=== PATIENT | female | born 1975 | race Caucasian/White ===

== ENCOUNTER 2021-05-21 01:07 | Emergency (ER) | payer SELFPAY ==
[~2021-05-21] VITALS: Ht 162.6 cm; Wt 68.8 kg
[~2021-05-21 01:07] MED LIST: HYDR-209
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
[2021-05-21 02:06] LABS: BASO # 0.1 x10^3/uL (0.0-0.2); BASO % 1 % (0-3); EOS # 0.4 x10^3/uL (0.0-0.7); EOS % 5 % (0-3); HEMATOCRIT 39.3 % (36.0-47.0); HEMOGLOBIN 13.1 g/dL (12.0-15.5); LYMPH # 3.2 x10^3/uL (1.0-4.8); LYMPH % 33 % (24-48); MEAN CORPUSCULAR HEMOGLOBIN 31 pg (25-35); MEAN CORPUSCULAR HGB CONC 33 g/dL (31-37); MEAN CORPUSCULAR VOLUME 91 fL (79-100); MONO # 0.8 x10^3/uL (0.0-1.1); MONO % 8 % (0-9); NEUT # 5.2 x10^3uL (1.8-7.7); NEUT % 53 % (31-73); PLATELET COUNT 252 x10^3/uL (140-400); RED CELL DISTRIBUTION WIDTH 14.8 % (11.5-14.5); WHITE BLOOD COUNT 9.7 x10^3/uL (4.0-11.0)
[2021-05-21 02:12] LABS: CALCIUM 8.9 mg/dL (8.5-10.1); CREATININE 0.7 mg/dL (0.6-1.0); GFR 90.5; POTASSIUM 4.4 mmol/L (3.5-5.1)
[2021-05-21 02:12] LABS: BACTERIA,URINE FEW /HPF (0-FEW); BILIRUBIN,URINE NEG (NEG); CLARITY,URINE HAZY; COLOR,URINE YELLOW; GLUCOSE,URINE NEG (NEG); NITRITE,URINE NEG (NEG); RBC,URINE 0 /HPF (0-2); SQUAMOUS EPITHELIAL CELL,UR OCC /LPF; UROBILINOGEN,URINE 0.2 mg/dL (0.2 mg/dL)
[2021-05-21] MEDS ORDERED: KETOROLAC 15 MG/ML VIAL. IVP ONE (02:15)
[2021-05-21 02:18] LABS: ALBUMIN 3.8 g/dL (3.4-5.0); ALBUMIN/GLOBULIN RATIO 1.4 (1.0-1.7); TOTAL BILIRUBIN 0.2 mg/dL (0.2-1.0); TOTAL PROTEIN 6.6 g/dL (6.4-8.2)
[2021-05-21] MEDS ORDERED: CONTRAST GIVEN. MC PRN (02:30)
[2021-05-21] MEDS ORDERED: IOHEXOL 300 MG/ML 75 ML VIAL. IV ONE (02:30)
[2021-05-21] MEDS ORDERED: DOXYCYCLINE HYCLATE 100 MG TABLET PO ONE (03:30)
[2021-05-21] MEDS ORDERED: cefTRIAXone IM 500 MG VIAL. IM ONE (03:30)
[2021-05-21] MEDS ORDERED: metroNIDAZOLE 500 MG TABLET PO ONE (03:30)
[2021-05-21] MEDS ORDERED: DOXY100T PO (04:19)
[2021-05-21] MEDS ORDERED: HYDR-2155 PO ×2 (04:19→04:21)
[2021-05-21] MEDS ORDERED: METR-34 PO (04:19)
[2021-05-21 04:30] VITALS: BP 116/72
--- NOTE | 2021-05-21 14:01 | RAD ---
EXAM: CT ABDOMEN/PELVIS WITH CONTRAST. HISTORY: Abdominal pain. TECHNIQUE: Computed tomography of the abdomen and pelvis was performed after the intravenous administ ration of iodinated contrast. One or more of the following individualized dose reduction techniques w ere utilized for this examination: 1. Automated exposure control. 2. Adjustment of the mA and/or kV according to patient size. 3. Use of iterative reconstruction technique. COMPARISON: None. FINDINGS: Lung windows through the visualized portions of the bases reveal mild atelectasis. Bone win dows reveal no suspicious lesions. There are changes of L1-L3 anterior fusion with L2 corpectomy. The right sacroiliac joint is fixed by 2 screws. There is a chronic fracture deformity of the right pubi c body. The appendix is not inflamed. Stool throughout the colon is consistent with constipation. There is no small bowel obstruction. There is a 2 mm right renal calculus. A benign right renal cyst measures 1.5 cm. There are no uretera l calculi or hydronephrosis. The liver, gallbladder, pancreas, adrenal glands and spleen are unremarkable. There are no pathologic ally enlarged lymph nodes. IMPRESSION: 1. 2 mm right renal calculus. 2. Correlate for constipation. Electronically signed by: Will Vargas MD (05/21/2021 3:48 AM) [facility]
[2021-05-22 19:08] LABS: CHLAMYDIA PROBE Negative (Negative)
== END 2021-05-21 04:33 | disposition home or self-care (01) ==
LOC: ER 01:07
DX: N73.0 Acute parametritis and pelvic cellulitis (principal); Z87.891 Personal history of nicotine dependence; Z88.5 Allergy status to narcotic agent; Z88.6 Allergy status to analgesic agent
CPT/HCPCS: 74177; 80053; 81001; 81025; 83690; 85025; 87086; 87491; 87591; 96372; 96374; 96375; 99285; J0696; J1885; J2060; Q0111; Q9967